=== PATIENT | female | born 1995 | race Caucasian/White ===

== ENCOUNTER 2019-03-07 16:55 | Emergency (ER) | payer OTHER ==
[~2019-03-07] VITALS: Ht 177.8 cm; Wt 104.5 kg
[2019-03-07] MEDS ORDERED: SYNTHROID0.1 MG/TAB PO (17:16)
[2019-03-07] MEDS ORDERED: VITAMIN D 1001000 IU PO (17:17)
[2019-03-07 18:45] VITALS: BP 128/83; PULSE 86; TEMP 98.4
== END 2019-03-07 18:45 | disposition home or self-care (01) ==
LOC: COL.ER 16:55
DX: J36 Peritonsillar abscess (principal); Z88.0 Allergy status to penicillin
CPT/HCPCS: J7120